=== PATIENT | female | born 1985 | race Caucasian/White ===

== ENCOUNTER 2025-07-28 02:52 | Day surgery (SDC) | payer OTHER, SELFPAY ==
[2025-07-18 13:09] VITALS: BMI 22.0
[2025-07-28 09:28] VITALS: BP 98/68; PULSE 65; RESP 18; TEMP 36.6; O2SAT 100
[2025-07-28] MEDS: LACTATED RINGERS 1,000 ML 150 ML IV CONT (09:38)
--- NOTE | 2025-07-28 09:44 | WPDANESEPPF ---
Anes - Initial Pre Proc Eval Procedure: Operation Date: 07/28/25 10:30 Proposed Procedures p Diagnostic Colonoscopy - Tk Riggs MD Date/Time: 07/28/25 09:44 Surgeon: Tk Riggs MD Pre Op Diagnosis: Chronic idiopathic constipation Patient Data Age: 39 Gender: F Height: 1.73 m Weight: 64.3 kg Last Vital Signs Temp 36.6 C 07/28/25 09:28 Pulse 65 07/28/25 09:28 Resp 18 07/28/25 09:28 BP 98/68 L 07/28/25 09:28 Pulse Ox 100 07/28/25 09:28 O2 Del Method Room Air 07/28/25 09:28 Allergies Allergy/AdvReac Type Severity Reaction Status Date / Time No Known Allergies Allergy Verified 07/28/25 09:26 Home Medications ?Medication ?Instructions ?Recorded ?Confirmed ?Type spironolactone 50 mg tablet 50 mg PO DAILY 04/15/24 07/28/25 History thyroid (pork) 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 [facility] Surgical History Surgical History H/O hemorrhoidectomy H/O umbilical hernia repair H/O: hysterectomy Family History Family History Grandparent Cancer Social History Social History Smoking status: Never smoker Tobacco type: cigarettes Alcohol intake: current Alcohol use details: occasionally Substance use: never Substance use type: does not use Do You Feel Safe in your Home?: Yes Lack of Transportation: No Lack of Food: Never True Current Housing: I Have Housing Concerned About Future Housing: No Difficulty Paying Gas/Electric Bills: No Difficulty Paying for Meds: No Currently Unemployed: No Living arrangements: with family Spiritual care concerns: No Anes - Eval Final PreProcedure Day of Procedure 07/28/25 09:44 Patient weight: normal Heart: regular rate and rhythm Lungs: clear to auscultation and normal air movement Airway: Mallampati scale class II Neurological: alert and oriented Last oral intake: >/= 8 hours ASA classification: I Emergent: no Anesthetic plan: proceed Anesthesia type and monitoring: general GIVS and standard monitoring Results Review: All pre-operative results and documents have been reviewed as part of the pre-operative evaluation. Informed Consent: The patient's anesthetic plan and its attendant risks and benefits were discussed with the patient/family/POA. Questions were solicited and answers provided to the satisfaction of the patient/family/POA.
--- NOTE | 2025-07-28 10:08 | PM.IMHP ---
H&P: HPI History of Present Illness Date/Time: 07/28/25 10:08 Chief Complaint: Rectal bleeding Narrative: Patient is complaining of intermittent rectal bleeding, bright red type for several months. She is here for colonoscopy. No family history of colon cancer, no abdominal pain, weight loss tenesmus or urgency. Review of Systems Review of Systems: All systems reviewed & are unremarkable except as noted in HPI and below PMFSH Surgical History Surgical History H/O hemorrhoidectomy H/O umbilical hernia repair H/O: hysterectomy Family History Family History Grandparent Cancer Social History Social History Smoking status: Never smoker Tobacco type: cigarettes Alcohol intake: current Alcohol use details: occasionally Substance use: never Substance use type: does not use Do You Feel Safe in your Home?: Yes Lack of Transportation: No Lack of Food: Never True Current Housing: I Have Housing Concerned About Future Housing: No Difficulty Paying Gas/Electric Bills: No Difficulty Paying for Meds: No Currently Unemployed: No Living arrangements: with family Spiritual care concerns: No Meds Home Medications and Allergies Home Medications ?Medication ?Instructions ?Recorded ?Confirmed ?Type spironolactone 50 mg tablet 50 mg PO DAILY 04/15/24 07/28/25 History thyroid (pork) 30 mg tablet (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 07/18/25 07/28/25 History Thyroid) Allergies Allergy/AdvReac Type Severity Reaction Status Date / Time No Known Allergies Allergy Verified 07/28/25 09:26 Vital Signs Vital Signs - 24 hr 07/28/25 09:28 Temperature 97.9 F Pulse Rate 65 Respiratory Rate 18 Blood Pressure 98/68 L Pulse Oximetry 100 Oxygen Delivery Room Air Exam Const: General: cooperative and healthy appearing Resp: Effort & Inspection: normal respiratory effort and able to speak in complete sentences Auscultation: clear to auscultation bilaterally Cardio: Rate: regular rate Rhythm: regular rhythm GI: Inspection: normal to inspection GI Palp: No No hepatosplenomegaly present Auscultation: normal bowel sounds Rectal Exam: deferred Skin: General skin exam: normal color Psych: Appearance: grossly normal Mental Status: mental status grossly normal Assessment and Plan Assessment and plan (1) Bright red rectal bleeding: Code(s): K62.5 - Hemorrhage of anus and rectum Status: Acute Assessment and Plan: The patient is deemed a good candidate for the procedure. Consent signed. Will proceed.
[2025-07-28 10:32] VITALS: BP 116/50; PULSE 65; RESP 20; O2SAT 100
[2025-07-28 10:42] VITALS: BP 119/57; PULSE 62; RESP 17; O2SAT 100
[2025-07-28 10:52] VITALS: BP 102/58; PULSE 50; RESP 19; O2SAT 100
[2025-07-28] MEDS: ONDANSETRON INJ 4 MG/2 ML VIAL IV PUSH (10:58)
[2025-07-28 11:02] VITALS: BP 100/60; PULSE 50; RESP 17; O2SAT 100
== END 2025-07-28 11:06 | disposition home or self-care (01) ==
PROVIDERS: Visit Provider Internal Medicine Gastroenterology
PROC: 0DJD8ZZ Inspection of Lower Intestinal Tract, Via Natural or Artificial Opening Endoscopic (ICD-10-PCS; CPT 45378; principal; 2025-07-28 10:30)
DX: K64.8 Other hemorrhoids (principal); K63.89 Other specified diseases of intestine; Z98.890 Other specified postprocedural states; Z80.9 Family history of malignant neoplasm, unspecified
CPT/HCPCS: 45378; J2405; J2704; J7120